=== PATIENT | female | born 1985 | race Caucasian/White ===

== ENCOUNTER 2023-01-31 13:47 | Outpatient (AMB) | payer BC, SELFPAY ==
--- NOTE | 2023-01-31 13:53 | MHC.OFFVIS ---
Intake Vital Signs 01/31/23 13:54 Height 5 ft 3 in Weight 143 lb BMI 25.3 BP 111/72 Blood Pressure Location Lt brachial Position Sitting Respiration 14 Pulse 73 Pulse Source Pulse Oximeter Pulse Oximetry (%) 98 Oxygen Delivery Method Room Air Intake Visit Reasons: Back Pain Allergies No Known Allergies Allergy (Verified 01/31/23 13:55) Medication List - Last Reconciled 01/31/23 by Beena Dupree LPN levothyroxine 25 mcg PO DAILY magnesium oxide 500 mg PO DAILY naratriptan 2.5 mg PO Q4H PRN propranolol 10 mg PO BID PRN riboflavin (vitamin B2) 400 mg PO DAILY HPI Back Pain HPI Details 37-year-old female presenting today for a new patient evaluation with an almost one-year history of upper back radiating towards the right scapula as well as tingling down the right upper extremity from the elbow to the 4th and 5th digits. It started insidiously in March 2022, without a known cause. It is described as a 4/10 in the mid-upper back, 5?6/10 in the right axilla and upper arm, and 3/10 in the forearm. She describes it as an ache in her upper back, a stabbing sensation in her upper arm, and a pins and needles sensation in her right 4th and 5th digits. ? She is unable to sleep normally and has difficulty getting comfortable at night. Her pain is worse at night, when it is rated at 6-7/10 in intensity. It is relatively stable during the morning, when it is rated at 0?3/10 in intensity. Her history is notable for migraine headaches that are controlled with naratriptan. She has tried physical therapy, with some improvement of about 20%. She had also tried chiropractic release, which provided good relief. She continues stretching exercises at home every day. 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 [facility] Medical History (Updated 01/31/23 @ 14:16 by Gino Alcantar MD) Anxiety disorder Review of Systems Const All systems reviewed & are unremarkable except as noted in HPI and below Physical Exam Vital Signs: Last Vital Signs Pulse 73 01/31/23 13:54 Resp 14 01/31/23 13:54 BP 111/72 01/31/23 13:54 Pulse Ox 98 01/31/23 13:54 Oxygen Delivery Method Room Air 01/31/23 13:54 BMI result Body Mass Index 25.3 General: Appears afebrile. Alert and oriented. Mood and affect appropriate. Follows and participates in conversation appropriately. Respiratory effort is unlabored. Able to transition from sit to stand unassisted. Ambulates with bilaterally normal heel strike and toe off. Cervical spine: Tenderness to palpation along the medial border of scapula. There is mild tenderness to palpation on the right trapezius. Lhermitte is positive. Facet loading is positive bilaterally. Neck extension reproduces pain symptoms at the base of the neck. Results Reviewed Results Reviewed: Thoracic spine 3 views Assessment & Plan Assessment & Plan (1) Cervical radiculitis: Code(s): M54.12 - Radiculopathy, cervical region Plan 1. Ordered a cervical MRI scan for further evaluation of the pain which has not improved despite physical therapy, chiropractic intervention and oral medications. 2. I will follow up with her once the MRI is in regarding assessing candidacy for potential cervical epidural steroid injection vs. continuing PT. Scribed for Dr. Alcantar by Leeroy Hernandez, medical device assembler, on 01/31/2023. I, Dr. Alcantar, have personally reviewed and agree with the information entered by the scribe. Orders: Orders MR cervical spine wo con 01/31/23 M54.12 - Radiculopathy, cervical region Coding Level of Care Code New Pt Level 4 (31072) Diagnoses Cervical radiculitis M54.12
[2023-01-31 13:54] VITALS: BP 111/72; PULSE 73; RESP 14; O2SAT 98; BMI 25.3
== END 2023-01-31 14:33 | disposition home or self-care (01) ==
PROVIDERS: PCP Internal Medicine; Visit Provider Internal Medicine
DX: M54.12 Radiculopathy, cervical region (principal)
CPT/HCPCS: 99204

== ENCOUNTER → 2023-01-31 13:47 | Outpatient (BNVA) | payer BC, SELFPAY | PROVIDERS: PCP Internal Medicine; Visit Provider Internal Medicine ==

== ENCOUNTER 2023-03-31 07:19 | Outpatient (REF) | payer BC, SELFPAY ==
--- NOTE | ~2023-03-31 | MR_ITS ---
EXAMINATION: MR CERVICAL SPINE WITHOUT CONTRAST CLINICAL INFORMATION: Radiculopathy, cervical region. COMPARISON: None available. TECHNIQUE: MRI of the cervical spine was obtained using routine sequences without contrast. FINDINGS: The visualized posterior fossa is unremarkable. Straightening of the normal cervical lordosis. No listhesis. No abnormal bone marrow signal. The vertebral body disc spaces are preserved. The spinal cord is normal in caliber. No abnormal cord signal C2-3: Bilateral facet arthrosis. No significant spinal canal or neural foraminal narrowing. C3-4: No significant spinal canal or neural foraminal narrowing. C4-5: No significant spinal canal or neural foraminal narrowing. C5-6: Bilateral facet arthrosis. No significant spinal canal or neural foraminal narrowing. C6-7: No significant spinal canal or neural foraminal narrowing. C7-T1: No significant spinal canal or neural foraminal narrowing. The paravertebral soft tissues are unremarkable. The visualized lung apices are clear. MR/MR cervical spine wo con IMPRESSION: Mild degenerative changes throughout the cervical spine without significant spinal canal or neural foraminal narrowing.
== END 2023-03-31 07:20 | disposition home or self-care (01) ==
LOC: HO.MRI 07:19
PROVIDERS: PCP Internal Medicine; Visit Provider Internal Medicine
DX: M54.12 Radiculopathy, cervical region (principal)
CPT/HCPCS: 72141

== ENCOUNTER 2023-06-10 10:22 | Outpatient (AMB) | payer BC, SELFPAY ==
[2023-06-10 10:39] VITALS: BP 117/71; PULSE 84; RESP 12; O2SAT 98; BMI 23.0
--- NOTE | 2023-06-10 10:39 | MHC.OFFVIS ---
Intake Vital Signs 06/10/23 10:39 Height 5 ft 3 in Weight 130 lb BMI 23.0 BP 117/71 Blood Pressure Location Lt brachial Position Sitting Respiration 12 Pulse 84 Pulse Source Pulse Oximeter Pulse Oximetry (%) 98 Oxygen Delivery Method Room Air Intake Visit Reasons: Follow Up/MRI Results/lvm Allergies No Known Allergies Allergy (Verified 06/10/23 10:40) Medication List - Last Reconciled 06/10/23 by Beena Dupree LPN levothyroxine 25 mcg PO DAILY naratriptan 2.5 mg PO Q4H PRN propranolol 10 mg PO BID PRN HPI Follow Up/MRI Results/lvm HPI Details 38-year-old female who presents today to the office for a follow-up of MRI scan result. The patient reports constant stabbing pain around the scapular region. She has occasional numbness and paresthesia. She has an aching sensation on her left side. She states that her pain degrees vary from day to day, and it was worst at the end of the week. She went for deep-tissue massages with minimal benefit. She has been making lifestyle changes and has lost 20 pounds of weight. 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 [facility] Medical History (Updated 06/16/23 @ 16:47 by Gino Alcantar MD) Anxiety disorder Review of Systems Const All systems reviewed & are unremarkable except as noted in HPI and below Physical Exam Vital Signs: Last Vital Signs Pulse 84 06/10/23 10:39 Resp 12 06/10/23 10:39 BP 117/71 06/10/23 10:39 Pulse Ox 98 06/10/23 10:39 Oxygen Delivery Method Room Air 06/10/23 10:39 BMI result Body Mass Index 23.0 General: Appears afebrile. Alert and oriented. Mood and affect appropriate. Follows and participates in conversation appropriately. Respiratory effort is unlabored. Able to transition from sit to stand unassisted. Ambulates with bilaterally normal heel strike and toe off. Tenderness to palpation along the edge of the right scapula. Office Procedures Injection Trigger Point Multi Right trigger point injection, ultrasound guided Pre-procedure diagnosis: Myofascial pain Post-procedure diagnosis: Myofascial pain Site and number of trigger points: spinalis thoracis iliocostalis thoracis longissimus thoracis Solution: Total volume administered 10 ml (5 ml lidocaine 0.5% + 5 ml bupivacaine 0.125%). The procedure, its benefits, and its risks were explained to the patient and all questions were answered. Prior to the start of the procedure, a ?time out? was performed to confirm correct patient, procedure, and laterality. Trigger points were identified by ultrasound and marked. The skin was cleaned with Chloraprep. A 1.5 inch 25 G needle was used. Each of the trigger points were approximated and and targeted with direct needle guidance under ultrasound imaging. Approximately 0.5 ml to 1 ml of injectate was delivered to the trigger point. This process was repeated at each trigger point site. The patient tolerated the procedure well. Post-procedure, breath sounds were equal at both sides of the chest. The patient tolerated the procedure well, without complication. The patient denied any numbness, paresthesias, or weakness. Post-procedure vitals were recorded as part of the nursing discharge note in electronic medical record. Following a period of observation, the patient was discharged in stable condition with written discharge instructions. Note: An ultrasound image of the injection was taken and stored in the permanent record. Trigger Point Multiple: 52899- Trigger point injection =/>3 Results Reviewed Results Reviewed: 03/31/23: MR CERVICAL SPINE WITHOUT CONTRAST FINDINGS: The visualized posterior fossa is unremarkable. Straightening of the normal cervical lordosis. No listhesis. No abnormal bone marrow signal. The vertebral body disc spaces are preserved. The spinal cord is normal in caliber. No abnormal cord signal C2-3: Bilateral facet arthrosis. No significant spinal canal or neural foraminal narrowing. C3-4: No significant spinal canal or neural foraminal narrowing. C4-5: No significant spinal canal or neural foraminal narrowing. C5-6: Bilateral facet arthrosis. No significant spinal canal or neural foraminal narrowing. C6-7: No significant spinal canal or neural foraminal narrowing. C7-T1: No significant spinal canal or neural foraminal narrowing. The paravertebral soft tissues are unremarkable. The visualized lung apices are clear. IMPRESSION: Mild degenerative changes throughout the cervical spine without significant spinal canal or neural foraminal narrowing. Assessment & Plan Assessment & Plan (1) Myofascial pain on right side: Code(s): M79.18 - Myalgia, other site Plan Patient is status post right trigger point injection, ultrasound guided. Patient tolerated procedure well and was discharged home in stable condition with discharge instructions. All questions were answered. Follow-up as needed for repeat injection/hydrodissection. Scribed for Dr. Alcantar by Leeroy Hernandez, medical lab scientist, on 06/10/2023. I, Dr. Alcantar, have personally reviewed and agree with the information entered by the scribe. Coding Level of Care Code Est Pt Level 3 (71686) Diagnoses Myofascial pain on right side M79.18 CPT Codes Details - Trigger Point Multiple: [id number]- Trigger point injection =/>3 ([id number])
== END 2023-06-10 11:36 | disposition home or self-care (01) ==
PROVIDERS: PCP Internal Medicine; Visit Provider Internal Medicine
DX: M79.18 Myalgia, other site (principal)
CPT/HCPCS: 20553; 76942; 99213

== ENCOUNTER → 2023-06-10 10:22 | Outpatient (BNVA) | payer BC, SELFPAY | PROVIDERS: PCP Internal Medicine; Visit Provider Internal Medicine | DX: M79.18 Myalgia, other site (principal) | CPT/HCPCS: 20553; J0665 ==